=== PATIENT | female | born 1930 | race Caucasian/White ===

== ENCOUNTER 2018-10-24 11:58 | Emergency (ER) | payer MEDICARE, OTHER ==
[2018-10-24 12:56] LABS: #Eosinphils 0.2 thou/uL (0.0-0.7); #Lymphocytes 1.4 thou/uL (1.20-3.40); #Monocytes 0.7 thou/uL (0.11-0.59); %Basophils 0.4 % (0.0-1.0); %Eosinophils 1.7 % (0.0-10.0); %Lymphocytes 15.5 % (21.0-51.0); %Monocytes 7.1 % (0.0-10.0); %Neutrophils 75.3 % (42.0-75.0); Hemoglobin 13.5 g/dL (12.0-16.0); Mean Corpuscular HGB CONC 32.4 g/dL (32.0-36.0); Mean Corpuscular Volume 89.5 fL (78.0-98.0); Mean Platelet Volume 7.3 fL (7.4-10.4); Platelet Count 239 thou/uL (130-400); Red Blood Cell (RBC) Count 4.66 mill/uL (4.20-5.40); White Blood Cell (WBC) Count 9.3 thou/uL (4.8-10.8)
--- NOTE | 2018-10-24 13:05 | RAD ---
FRadiograph chest one view: HISTORY: 88-year-old female with chest pain FINDINGS: The visualized lung lynn are clear. The cardiomediastinal silhouette is normal. No pneumothorax. IMPRESSION: No acute cardiopulmonary findings.
[2018-10-24 13:09] LABS: ALT (SGPT) 27 U/L (8-55); AST (SGOT) 38 U/L (5-34); Albumin 4.3 g/dL (3.4-4.8); Alkaline Phosphatase 55 U/L (40-150); Anion Gap 14 mmol/L (10-20); BUN (Urea Nitrogen) 14 mg/dL (9.8-20.1); Bilirubin, Total 0.6 mg/dL (0.2-1.2); Calc. Creatinine Clearance 0 mL/min (70-130); Calcium 9.2 mg/dL (7.8-10.44); Carbon Dioxide 27 mmol/L (23-31); Chloride 103 mmol/L (98-107); Estimated GFR-MDRD 73; Globulin 2.7 g/dL (2.4-3.5); Glucose 112 mg/dL (83-110); Lipase 23 U/L (8-78); Potassium 4.2 mmol/L (3.5-5.1); Sodium 140 mmol/L (136-145)
--- NOTE | 2018-10-24 14:00 | CT ---
FCT abdomen with contrast CT pelvis with contrast: DATE: 10/24/2018 HISTORY: 88-year-old female with generalized abdominal pain COMPARISON: Noncontrast CT of 02/14/2016 TECHNIQUE: IV injection of iodinated contrast media: 100 mL [id number] Oral contrast media:Not administered FINDINGS: Again noted is the large cyst at the left lobe of liver with adjacent smaller satellite cysts. There are additional several tiny focal hypodensities less than 1 cm in size elsewhere in the liver. Some o f these are visible on the noncontrast CT, and are stable, consistent with additional cysts. No defin ite enhancing solid liver mass identified. No intrahepatic biliary ductal dilation. No signs of acute cholecystitis. No hydronephrosis. No abdominal aortic aneurysm. No pancreatitis or pancreatic mass. Adrenals and spleen demonstrate no major pathology. Sigmoid colonic diverticulosis without diverticul itis. No small bowel dilation. Normal urinary bladder. Appendix not identified, but no evidence of ap pendicitis. No ascites or pneumoperitoneum. No small bowel dilation. Tiny hyperdensities along the ga llbladder wall could be mural calcification. Less likely tiny calcified gallstones. No major interval change. No ascites or pneumoperitoneum. IMPRESSION: 1) multiple hepatic cysts. 2) no acute findings
[2018-10-24] MEDS ORDERED: HYDROcodone/Acetaminophen 5/325 mg Tablet ONE (15:06)
[2018-10-24] MEDS ORDERED: ISOVUE-370 76%-LOCM 1 ML ONE (15:21)
== END 2018-10-24 16:39 | disposition home or self-care (01) ==
LOC: ERS 11:58
DX: R10.13 Epigastric pain (principal); G89.29 Other chronic pain; R07.9 Chest pain, unspecified; M54.9 Dorsalgia, unspecified; G30.9 Alzheimer's disease, unspecified; F02.80 Dementia in other diseases classified elsewhere, unspecified severity, without behavioral disturbance, psychotic disturbance, mood disturbance, and anxiety; E78.5 Hyperlipidemia, unspecified; E03.9 Hypothyroidism, unspecified; Z79.899 Other long term (current) drug therapy
CPT/HCPCS: 36415; 71045; 74177; 80053; 83690; 83880; 84484; 85025; 93005; Q9966

== ENCOUNTER 2019-09-22 18:13 | Emergency (ER) | payer MEDICARE, OTHER ==
[~2019-09-22 18:13] MED LIST: Iopamidol 370 76% 100 ML VIAL ONE
[2019-09-22 18:58] LABS: #Eosinphils 0.2 thou/uL (0.0-0.7); #Lymphocytes 1.7 thou/uL (1.20-3.40); #Monocytes 0.6 thou/uL (0.11-0.59); #Neutrophils 4.5 thou/uL (1.40-6.50); %Basophils 0.6 % (0.0-1.0); %Eosinophils 2.9 % (0.0-10.0); %Lymphocytes 24.5 % (21.0-51.0); Hemoglobin 13.9 g/dL (12.0-16.0); Mean Corpuscular HGB CONC 33.9 g/dL (32.0-36.0); Mean Corpuscular Hemoglobin 29.4 pg (27.0-31.0); Mean Corpuscular Volume 86.7 fL (78.0-98.0); Mean Platelet Volume 7.6 fL (7.4-10.4); Platelet Count 221 thou/uL (130-400); RBC Distribution Width 12.2 % (11.5-14.5); Red Blood Cell (RBC) Count 4.72 mill/uL (4.20-5.40); White Blood Cell (WBC) Count 7.1 thou/uL (4.8-10.8)
[2019-09-22 19:14] LABS: Chloride 105 mmol/L (98-107); Potassium 4.2 mmol/L (3.5-5.1); Sodium 142 mmol/L (136-145)
[2019-09-22 19:19] LABS: ALT (SGPT) 17 U/L (8-55); AST (SGOT) 23 U/L (5-34); Albumin 4.3 g/dL (3.4-4.8); Alkaline Phosphatase 56 U/L (40-110); BUN (Urea Nitrogen) 13 mg/dL (9.8-20.1); Bilirubin, Total 0.5 mg/dL (0.2-1.2); Calc. Creatinine Clearance 0 mL/min (70-130); Calcium 9.4 mg/dL (7.8-10.44); Carbon Dioxide 30 mmol/L (23-31); Estimated GFR-MDRD 72; Globulin 2.6 g/dL (2.4-3.5); Glucose 102 mg/dL (83-110); Protein, Total 6.9 g/dL (6.0-8.3)
[2019-09-22 19:21] LABS: Anion Gap 11 mmol/L (10-20)
--- NOTE | 2019-09-22 19:25 | RAD ---
EXAM: CHEST ONE VIEW HISTORY: Abdominal pain and vomiting. COMPARISON: 10/24/2018 FINDINGS: The cardiac silhouette and pulmonary vasculature is within normal limits. Vascular calcifications are seen in the thoracic aorta. The osseous structures are intact. Chest is stable compared to prior exam. IMPRESSION: No acute cardiopulmonary process.
[2019-09-22 19:52] LABS: Bilirubin Negative (Negative); Blood, Urine Negative (Negative); Clarity Clear (Clear); Glucose, Urine (Dipstick) Normal (Negative); Leukocyte Negative Leu/uL (Negative); Nitrite Negative (Negative); Protein, Urine (Dipstick) Negative (Neg-Trace); Urobilinogen Normal mg/dL (Less than 2)
--- NOTE | 2019-09-22 20:28 | CT ---
CT ABDOMEN AND PELVIS WITH IV CONTRAST 09/22/2019 CLINICAL INFORMATION: Generalized abdominal pain. Vomiting. COMPARISON: 10/24/2018 Technique: Multiple contiguous axial CT images are obtained through the abdomen and pelvis with IV contrast. Cor onal reformatted images are provided. FINDINGS: Lower Chest: Mild groundglass densities are seen at each lung base probably related to volume loss. P ulmonary nodule in the right middle lobe is again identified measuring approximately 1 cm and unchanged in size. Calcified granuloma seen at the right lung base. A small curvilinear area of fluid attenuation is seen in the posteromedial lower mediastinum on the right. Exact etiology is uncertain, this is likely attributable to a benign finding. Vessels: Vascular calcifications are seen in the abdominal aorta and iliac arteries. Normal aorta is normal in caliber. Abdomen: Portal vein:Patent Gallbladder: Gallbladder calculi are again visualized. The common duct measures 8 mm, but this is wit hin normal limits for the patient's age. Liver: Diminished attenuation relative to the spleen likely attributable to fatty infiltration. Stabl e scattered hypodense lesions are seen in each lobe of the liver greater in the left hepatic lobe probably attributable to hepatic cysts. Largest hypodense lesion is seen in the lateral segment left hepatic lobe measuring 7 cm which does demonstrate fluid attenuation. Spleen: Calcified granulomata are again present. Pancreas: within normal limits. Adrenals: within normal limits. This pulmonary nodule is also seen on the study in 2016. Kidneys: within normal limits. Bowel: Colonic diverticulosis is present in the sigmoid colon. Loops of small bowel are normal in hillary iber. Appendix: Not visualized, there are no secondary signs to suggest appendicitis. Peritoneum: No ascites or free air; no fluid collection. Mesentery and Retroperitoneum: No enlarged mesenteric or retroperitoneal lymph nodes. Abdominal Wall: within normal limits. Pelvis: Reproductive Organs: Evidence of hysterectomy. Pelvis: There is atrophy of the pelvic musculature asymmetrically greater on the right. This is a sta ble finding. Bladder: within normal limits. Bones: Degenerative changes are seen in the spine. There is slight height loss of the superior endpla te of the L1 vertebral body which appears stable compared to the prior exam. Multilevel degenerative changes are again seen in the lumbar spine. Prominent Schmorl's node in the inferior end plate of the L2 vertebral body again present. IMPRESSION: 1. Stable CT abdomen and pelvis without acute findings identified. 2. Stable right middle lobe pulmonary nodule measuring 1 cm. 3. Stable hypodense hepatic lesions likely related to hepatic cysts. 4. Fatty infiltration of the liver. 5. Cholelithiasis. 6. Colonic diverticulosis. 7. Hysterectomy.
== END 2019-09-22 21:50 | disposition home or self-care (01) ==
LOC: ERS 18:13
DX: R14.0 Abdominal distension (gaseous) (principal); E03.9 Hypothyroidism, unspecified; E78.5 Hyperlipidemia, unspecified; E78.00 Pure hypercholesterolemia, unspecified; G30.9 Alzheimer's disease, unspecified; F02.80 Dementia in other diseases classified elsewhere, unspecified severity, without behavioral disturbance, psychotic disturbance, mood disturbance, and anxiety; Z79.899 Other long term (current) drug therapy
CPT/HCPCS: 36415; 51701; 71045; 74177; 80053; 81003; 83690; 85025; 93005; 94760; A4353; Q9967

== ENCOUNTER 2021-02-04 17:27 | Emergency (ER) | payer MEDICARE, OTHER | END 2021-02-04 22:44 | disposition home or self-care (01) | LOC: ERS 17:27 | DX: R41.82 Altered mental status, unspecified (principal); E03.9 Hypothyroidism, unspecified; E78.5 Hyperlipidemia, unspecified; Z79.899 Other long term (current) drug therapy | CPT/HCPCS: 36415; 74177; 76705; 80053; 81003; 82550; 83605; 83690; 84439; 84443; 84481; 84484; 85025; 87086; 93005; 96374; J2405; Q9967 ==

== ENCOUNTER 2021-06-24 14:50 | Emergency (ER) | payer MEDICARE, OTHER | END 2021-06-24 17:30 | disposition home or self-care (01) | LOC: ERS 14:50 | DX: S43.402A Unspecified sprain of left shoulder joint, initial encounter (principal); E03.9 Hypothyroidism, unspecified; E78.5 Hyperlipidemia, unspecified; E78.00 Pure hypercholesterolemia, unspecified; Z79.899 Other long term (current) drug therapy | CPT/HCPCS: 93005 ==

== ENCOUNTER 2021-09-07 11:58 | Observation (INO) | payer MEDICARE, OTHER ==
[2021-09-07 13:15] LABS: #Eosinphils 0.1 thou/uL (0.0-0.7); #Lymphocytes 1.8 thou/uL (1.20-3.40); #Monocytes 0.9 thou/uL (0.11-0.59); %Basophils 0.2 % (0.0-1.0); %Eosinophils 1.3 % (0.0-10.0); %Lymphocytes 20.6 % (21.0-51.0); %Monocytes 10.3 % (0.0-10.0); %Neutrophils 67.6 % (42.0-75.0); Hemoglobin 13.8 g/dL (12.0-16.0); Mean Corpuscular Hemoglobin 28.8 pg (27.0-31.0); Mean Corpuscular Volume 87.4 fL (78.0-98.0); Mean Platelet Volume 7.2 fL (7.4-10.4); Platelet Count 257 thou/uL (130-400); RBC Distribution Width 12.8 % (11.5-14.5); Red Blood Cell (RBC) Count 4.78 mill/uL (4.20-5.40); White Blood Cell (WBC) Count 8.9 thou/uL (4.8-10.8)
[2021-09-07 13:37] LABS: ALT (SGPT) 10 U/L (8-55); AST (SGOT) 19 U/L (5-34); Albumin 4.3 g/dL (3.4-4.8); Alkaline Phosphatase 67 U/L (40-110); Anion Gap 14 mmol/L (10-20); BUN (Urea Nitrogen) 10 mg/dL (9.8-20.1); Bilirubin, Total 1.3 mg/dL (0.2-1.2); Calc. Creatinine Clearance 0 mL/min (70-130); Calcium 8.8 mg/dL (7.8-10.44); Carbon Dioxide 24 mmol/L (23-31); Chloride 104 mmol/L (98-107); Globulin 2.7 g/dL (2.4-3.5); Glucose 95 mg/dL (83-110); Lipase 12 U/L (8-78); Potassium 3.9 mmol/L (3.5-5.1); Sodium 138 mmol/L (136-145)
[2021-09-07] MEDS ORDERED: Acetaminophen 500 MG TAB ONE (13:54)
[2021-09-07] MEDS ORDERED: Senokot S 8.6-50 MG TAB PO PRN (15:21)
[2021-09-07] MEDS ORDERED: Calcium Carbonate 500 MG ChewTAB PO PRN (15:21)
[2021-09-07] MEDS ORDERED: Ondansetron ODT 4 MG TAB PO PRN (15:21)
[2021-09-07] MEDS ORDERED: Acetaminophen 325 MG TAB PO PRN (15:21)
[2021-09-07] MEDS ORDERED: Piperacillin/Tazobactam 3.375 GM VIAL ONE (16:48)
[2021-09-07 17:21] LABS: Bilirubin Negative (Negative); Blood, Urine Negative (Negative); Clarity Clear (Clear); Glucose, Urine (Dipstick) Normal (Negative); Ketone, Urine Negative (Negative); Leukocyte Negative Leu/uL (Negative); Nitrite Negative (Negative); Protein, Urine (Dipstick) Negative (Neg-Trace); Specific Gravity, Urine 1.011 (1.002-1.036); Urobilinogen Normal mg/dL (Less than 2); pH, Urine 6.5 (5.0-9.0)
[2021-09-07] MEDS ORDERED: metroNIDAZOLE 500 MG in Premix Bag 1 BAG IVPB SCH ×2 (18:00→21:00)
[2021-09-07 19:04] VITALS: BMI 27.6
[2021-09-07] MEDS: metroNIDAZOLE 500 MG TAB PO SCH (21:00)
[2021-09-07] MEDS ORDERED: cefTRIAXone\\ROCEPHIN 1 GM in Sodium Chloride 0.9% 100 ML IVPB SCH (21:00)
[2021-09-08 04:52] LABS: #Basophils 0.1 thou/uL (0.0-0.2); #Eosinphils 0.2 thou/uL (0.0-0.7); #Lymphocytes 1.7 thou/uL (1.20-3.40); #Monocytes 0.8 thou/uL (0.11-0.59); #Neutrophils 4.1 thou/uL (1.40-6.50); %Basophils 0.7 % (0.0-1.0); %Lymphocytes 25.2 % (21.0-51.0); %Monocytes 11.1 % (0.0-10.0); Hemoglobin 12.2 g/dL (12.0-16.0); Mean Corpuscular HGB CONC 32.5 g/dL (32.0-36.0); Mean Corpuscular Hemoglobin 28.4 pg (27.0-31.0); Mean Corpuscular Volume 87.1 fL (78.0-98.0); Mean Platelet Volume 7.6 fL (7.4-10.4); Platelet Count 227 thou/uL (130-400); RBC Distribution Width 12.7 % (11.5-14.5); Red Blood Cell (RBC) Count 4.31 mill/uL (4.20-5.40); White Blood Cell (WBC) Count 6.8 thou/uL (4.8-10.8)
[2021-09-08 05:10] LABS: Anion Gap 14 mmol/L (10-20); BUN (Urea Nitrogen) 11 mg/dL (9.8-20.1); Calc. Creatinine Clearance 67 mL/min (70-130); Calcium 8.4 mg/dL (7.8-10.44); Carbon Dioxide 24 mmol/L (23-31); Chloride 107 mmol/L (98-107); Glucose 100 mg/dL (83-110); Potassium 3.5 mmol/L (3.5-5.1); Sodium 141 mmol/L (136-145)
[2021-09-08 05:27] LABS: Free T4 (Free Thyroxine) 1.15 ng/dL (0.70-1.48)
[2021-09-08] MEDS ORDERED: Levothyroxine Sodium 100 MCG TAB PO SCH (07:00)
[2021-09-08] MEDS ORDERED: Rivastigmine 9.5mg/24 Hour PATCH TOP SCH (09:00)
[2021-09-08] MEDS ORDERED: Escitalopram Oxalate 10 mg Tablet PO SCH (09:00)
[2021-09-08] MEDS: metroNIDAZOLE 500 MG TAB PO SCH (11:59)
[2021-09-08 15:47] VITALS: TEMP 98.5
[2021-09-08 16:26] VITALS: BP 124/61
[2021-09-08] MEDS ORDERED: Atorvastatin Calcium 20 MG TAB PO SCH (21:00)
[2021-09-09] MEDS ORDERED: Levothyroxine Sodium 100 MCG TAB PO SCH (06:00)
== END 2021-09-08 18:30 | disposition home or self-care (01) ==
LOC: ERS 11:58 → 2NO 15:32
PROVIDERS: ADMIT Internal Medicine; ATTEND Nurse Practitioner Family
DX: J18.9 Pneumonia, unspecified organism (principal); S63.502A Unspecified sprain of left wrist, initial encounter; R41.82 Altered mental status, unspecified; G30.9 Alzheimer's disease, unspecified; F02.80 Dementia in other diseases classified elsewhere, unspecified severity, without behavioral disturbance, psychotic disturbance, mood disturbance, and anxiety; E03.9 Hypothyroidism, unspecified; K21.9 Gastro-esophageal reflux disease without esophagitis; E78.5 Hyperlipidemia, unspecified; M85.832 Other specified disorders of bone density and structure, left forearm; M43.22 Fusion of spine, cervical region; M18.12 Unilateral primary osteoarthritis of first carpometacarpal joint, left hand; Z79.899 Other long term (current) drug therapy; Z88.2 Allergy status to sulfonamides; Z88.8 Allergy status to other drugs, medicaments and biological substances; Z91.048 Other nonmedicinal substance allergy status; Z20.822 Contact with and (suspected) exposure to COVID-19; X58.XXXA Exposure to other specified factors, initial encounter
CPT/HCPCS: 29125; 70450; 71045; 72125; 73090; 73110; 80048; 81003; 83690; 84439; 84481; 84484; 85025; 87040; 87086; 93005; 96374; 97139; 99285; U0005; 36415; 80053; 84443; 96365; 96375; G0378; J0696; J2543; J3490; U0003

== ENCOUNTER 2021-09-14 14:51 | Emergency (ER) | payer MEDICARE, OTHER | END 2021-09-14 17:36 | disposition home or self-care (01) | LOC: ERS 14:51 | DX: S20.212A Contusion of left front wall of thorax, initial encounter (principal); M54.50 Low back pain, unspecified; E03.9 Hypothyroidism, unspecified; E78.5 Hyperlipidemia, unspecified; E78.00 Pure hypercholesterolemia, unspecified; G30.9 Alzheimer's disease, unspecified; F02.80 Dementia in other diseases classified elsewhere, unspecified severity, without behavioral disturbance, psychotic disturbance, mood disturbance, and anxiety; W19.XXXA Unspecified fall, initial encounter; Z79.899 Other long term (current) drug therapy | CPT/HCPCS: 71250; 72131 ==

== ENCOUNTER 2021-12-27 13:29 | Inpatient (IN) | payer MEDICARE, OTHER ==
[2021-12-27 15:15] LABS: #Basophils 0.1 thou/uL (0.0-0.2); #Eosinphils 0.3 thou/uL (0.0-0.7); #Lymphocytes 2.1 thou/uL (1.20-3.40); #Monocytes 0.7 thou/uL (0.11-0.59); %Basophils 0.5 % (0.0-1.0); %Eosinophils 2.9 % (0.0-10.0); %Lymphocytes 20.4 % (21.0-51.0); %Monocytes 7.3 % (0.0-10.0); %Neutrophils 68.9 % (42.0-75.0); Hemoglobin 14.3 g/dL (12.0-16.0); Mean Corpuscular HGB CONC 32.3 g/dL (32.0-36.0); Mean Corpuscular Volume 89.8 fL (78.0-98.0); Mean Platelet Volume 6.9 fL (7.4-10.4); Platelet Count 409 thou/uL (130-400); RBC Distribution Width 13.5 % (11.5-14.5); Red Blood Cell (RBC) Count 4.92 mill/uL (4.20-5.40); White Blood Cell (WBC) Count 10.1 thou/uL (4.8-10.8)
[2021-12-27 15:31] LABS: ALT (SGPT) 9 U/L (8-55); AST (SGOT) 20 U/L (5-34); Alkaline Phosphatase 123 U/L (40-110); Anion Gap 14 mmol/L (10-20); BUN (Urea Nitrogen) 9 mg/dL (9.8-20.1); Bilirubin, Total 0.5 mg/dL (0.2-1.2); Calc. Creatinine Clearance 0 mL/min (70-130); Calcium 9.4 mg/dL (7.8-10.44); Carbon Dioxide 27 mmol/L (23-31); Chloride 103 mmol/L (98-107); Globulin 3.6 g/dL (2.4-3.5); Glucose 83 mg/dL (83-110); Potassium 3.8 mmol/L (3.5-5.1); Protein, Total 7.6 g/dL (5.8-8.1); Sodium 140 mmol/L (136-145)
[2021-12-27] MEDS ORDERED: Lidocaine 1% PF 5 ML VIAL ONE (16:27)
[2021-12-27 17:27] LABS: RBC Count-Automated (BF) 79 /cu.mm; WBC/Nucleated-Auto (BF) 416 /cu.mm
[2021-12-27 17:36] LABS: Pleural Fluid, Protein 4.9 g/dL
[2021-12-27] MEDS ORDERED: Ketorolac Tromethamine 30 MG/ML VIAL ONE (17:43)
[2021-12-27] MEDS ORDERED: Ondansetron PF 4 MG/2 ML Vial ONE (17:43)
[2021-12-27] MEDS ORDERED: Morphine 4 MG/ML VIAL ONE (17:43)
[2021-12-27 18:16] LABS: BF Color Yellow; Body Fluid Source Pleural Fluid; Clarity Clear (Clear); Tube # EDTA
[2021-12-27 18:25] LABS: BF Segmented Neutrophils 12 %; Cell Count Non Hematic 41 %; Eosinophils 11 %; Lymphocytes 36 %
[2021-12-27] MEDS ORDERED: Acetaminophen 325 MG TAB PO PRN (21:15)
[2021-12-27] MEDS ORDERED: Ondansetron PF 4 MG/2 ML Vial IVP PRN (21:15)
[2021-12-27] MEDS ORDERED: Ondansetron ODT 4 MG TAB SL PRN (21:15)
[2021-12-27] MEDS ORDERED: Artificial Tear Sol 15 ML BOT EA EYE PRN (21:18)
[2021-12-27] MEDS ORDERED: Moisturizing Cream (Eucerin) 113 GM JAR TOP PRN (21:18)
[2021-12-27] MEDS ORDERED: Acetaminophen 500 MG TAB PO PRN (21:18)
[2021-12-27] MEDS ORDERED: Sodium Chloride 0.65% Nasal 44 ML BOT EA NARE PRN (21:18)
[2021-12-27] MEDS ORDERED: Acetaminophen 650 MG Suppository PR PRN (21:18)
[2021-12-27] MEDS ORDERED: Ketorolac Tromethamine 30 MG/ML VIAL IVP PRN ×2 (21:23→21:27)
[2021-12-27 21:34] VITALS: BMI 26.4
[2021-12-28] MEDS ORDERED: Levothyroxine Sodium 100 MCG TAB PO SCH (06:00)
[2021-12-28] MEDS ORDERED: Rivastigmine 9.5mg/24 Hour PATCH TOP SCH (09:00)
[2021-12-28] MEDS ORDERED: Escitalopram Oxalate 10 mg Tablet PO SCH (09:00)
[2021-12-28 10:02] LABS: #Eosinphils 0.4 thou/uL (0.0-0.7); #Lymphocytes 1.9 thou/uL (1.20-3.40); #Monocytes 0.6 thou/uL (0.11-0.59); #Neutrophils 5.2 thou/uL (1.40-6.50); %Basophils 0.4 % (0.0-1.0); %Eosinophils 4.8 % (0.0-10.0); %Lymphocytes 23.4 % (21.0-51.0); %Monocytes 7.1 % (0.0-10.0); %Neutrophils 64.3 % (42.0-75.0); Hemoglobin 13.3 g/dL (12.0-16.0); Mean Corpuscular HGB CONC 32.4 g/dL (32.0-36.0); Mean Corpuscular Hemoglobin 29.5 pg (27.0-31.0); Mean Corpuscular Volume 91.1 fL (78.0-98.0); Mean Platelet Volume 6.6 fL (7.4-10.4); Platelet Count 373 thou/uL (130-400); RBC Distribution Width 13.4 % (11.5-14.5); Red Blood Cell (RBC) Count 4.52 mill/uL (4.20-5.40)
[2021-12-28 10:21] LABS: Phosphorus 4.4 mg/dL (2.3-4.7)
[2021-12-28 10:23] LABS: Anion Gap 16 mmol/L (10-20); BUN (Urea Nitrogen) 13 mg/dL (9.8-20.1); Calc. Creatinine Clearance 51 mL/min (70-130); Calcium 9.5 mg/dL (7.8-10.44); Carbon Dioxide 24 mmol/L (23-31); Chloride 103 mmol/L (98-107); Glucose 96 mg/dL (83-110); Magnesium 2.2 mg/dL (1.6-2.6); Sodium 139 mmol/L (136-145)
[2021-12-28 11:51] VITALS: BP 115/56; TEMP 98.5
[2021-12-28] MEDS ORDERED: Atorvastatin Calcium 20 MG TAB PO SCH (21:00)
== END 2021-12-28 15:25 | disposition home or self-care (01) | DRG 183 ==
LOC: ERS 13:29 → 2NO 16:14
PROVIDERS: ADMIT Internal Medicine; ATTEND Internal Medicine
PROC: 0W9B3ZZ Drainage of Left Pleural Cavity, Percutaneous Approach (ICD-10-PCS; principal; 2021-12-27)
DX: S22.42XA Multiple fractures of ribs, left side, initial encounter for closed fracture (principal); J96.01 Acute respiratory failure with hypoxia; J91.8 Pleural effusion in other conditions classified elsewhere; Z20.822 Contact with and (suspected) exposure to COVID-19; G30.9 Alzheimer's disease, unspecified; F02.80 Dementia in other diseases classified elsewhere, unspecified severity, without behavioral disturbance, psychotic disturbance, mood disturbance, and anxiety; E03.9 Hypothyroidism, unspecified; E78.5 Hyperlipidemia, unspecified; F32.A Depression, unspecified; K21.9 Gastro-esophageal reflux disease without esophagitis; W19.XXXA Unspecified fall, initial encounter; N18.2 Chronic kidney disease, stage 2 (mild); D75.838 Other thrombocytosis; Z79.890 Hormone replacement therapy; Z90.710 Acquired absence of both cervix and uterus; Z98.890 Other specified postprocedural states; Z98.49 Cataract extraction status, unspecified eye; Z88.1 Allergy status to other antibiotic agents; Z88.2 Allergy status to sulfonamides; Z79.899 Other long term (current) drug therapy; Z91.048 Other nonmedicinal substance allergy status
CPT/HCPCS: 36415; 70450; 71045; 71250; 72125; 80048; 80053; 82150; 82945; 83615; 83735; 83880; 83986; 84100; 84157; 84478; 84484; 85025; 85060; 87070; 87116; 87205; 87206; 88112; 88305; 89051; 93005; 96374; 96375; J1885; J2270; J2405; U0003; U0005